=== PATIENT | female | born 1985 | race Caucasian/White ===

== ENCOUNTER 2018-12-02 11:04 | Emergency (ER) | payer OTHER ==
[~2018-12-02] VITALS: Ht 157.5 cm; Wt 88.5 kg
[~2018-12-02 11:04] MED LIST: AZITHROMYCIN 2250 MG PO; BACTRIM DS TAB1 EACH PO; BENTYL20 MG PO; DEPO-PROVERA IM; FIORICET 50-301 EACH PO; FLAGYL500 M1 PO; FLEXERIL PO; GLUCOPHAGE XR500 MG PO; HYDROCODONE-APA1 TA1 PO; IBUPROFEN 600600 M1 PO; IBUPROFEN 800800 MG PO; LORTAB; MEDROXYPRO150 MG/1 M IM; NAPROSYN500 MG PO; NOHOMEMEDICATIONS; PHENAZOPYRIDIN200 M2 PO; PHENERGAN 25 MG25 M1 PO; ROBAXIN500 MG PO; SENNA; TRAMADOL 50 MG50 MG PO; ULTRAM 50MG TAB50 MG PO; ZOFRAN ODT4 MG PO; ZOFRAN4 MG PO
[2018-12-02 11:18] VITALS: BP 139/82
[2018-12-02 13:09] LABS: INFLUENZA A ANTIGEN None Detected (None Detect); INFLUENZA B ANTIGEN None Detected (None Detect)
[2018-12-02] MEDS ORDERED: TESSALON PERLE100 MG PO (13:24)
[2018-12-02] MEDS ORDERED: PROAIR HFA8.5 GM INH (13:24)
== END 2018-12-02 13:50 | disposition home or self-care (01) ==
LOC: M.ERS 11:04
PROVIDERS: Personal Emergency Response Attendant
DX: J06.9 Acute upper respiratory infection, unspecified (principal); F17.210 Nicotine dependence, cigarettes, uncomplicated; E11.9 Type 2 diabetes mellitus without complications; E28.2 Polycystic ovarian syndrome; Z90.89 Acquired absence of other organs; Z90.49 Acquired absence of other specified parts of digestive tract